=== PATIENT | female | born 1990 | race Caucasian/White ===

== ENCOUNTER → 2021-08-03 14:09 | Outpatient (CLI) | payer MEDICAID, SELFPAY ==
[2021-08-03 14:22] LABS: Alanine Aminotransferase 28 U/L (12-78); Albumin Level 4.4 g/dl (3.5-5.0); Albumin/Globulin Ratio 1.4 (1.1-1.8); Alkaline Phosphatase 93 U/L (38-126); Anion Gap 14.4 mEq/L (5-15); Aspartate Amino Transferase 24 U/L (14-36); Bilirubin,Total 0.3 mg/dl (0.2-1.3); Blood Urea Nitrogen 10 mg/dl (7-17); Calcium 9.7 mg/dl (8.4-10.2); Carbon Dioxide 27 mmol/L (22.0-30.0); Chloride 103 mmol/L (98-107); Chol/HDL Ratio 5.1 (1-3.5); Cholesterol 177 mg/dl (140-200); Estimated Glomerular Filt Rate 84 ml/min (>60); GFR (African American) 102 ML/MIN (>60); Globulin 3.2 g/dL (1.3-3.2); Glucose 77 mg/dl (74-100); HDL Cholesterol 35 mg/dl (40-60); Potassium 4.4 mmoL/L (3.5-5.1); Sodium 140 mmol/L (136-145); Total Protein,Serum 7.6 g/dl (6.3-8.2); Triglycerides 177 mg/dl (30-150); VLDL Cholesterol 35 mg/dL (0-40)
[2021-08-03 14:29] LABS: Basophils % 0.6 % (0.1-2.0); Eosinophils # 0.3 K/mm3 (0.0-0.4); Eosinophils % 3.3 % (0.1-12.0); Hematocrit 45.9 % (37.0-47.0); Hemoglobin 16.1 g/dL (12.2-16.2); Lymphocytes # 1.9 K/mm3 (0.7-4.5); Lymphocytes % 24.6 % (10-50); Mean Corpuscular HGB Conc 35.1 g/dL (31.8-35.4); Mean Corpuscular Hemoglobin 32.3 pg (27.0-31.2); Mean Corpuscular Volume 92.3 fl (81-99); Mean Platelet Volume 8.8 fl (7.4-10.4); Monocytes # 0.5 K/mm3 (0.1-1.0); Monocytes % 6.2 % (1.7-9.3); Neutrophils # 5.1 K/mm3 (1.8-7.8); Neutrophils % 65.3 % (37.0-80.0); Platelet Count 274 K/mm3 (142-424); Red Blood Count 4.97 M/mm3 (4.20-5.40); Red Cell Distribution Width 12.9 % (11.5-17.5); White Blood Count 7.8 K/mm3 (4.8-10.8)
[2021-08-03 14:32] LABS: Direct LDL Cholesterol 111.89 mg/dL (100-129)
[2021-08-03 14:38] LABS: 25-OH Vitamin D, Total 39.1 ng/mL (30-100)
[2021-08-03 14:40] LABS: T4 (Thyroxine) 12.5 ug/dl (5.53-11.0)
[2021-08-03 14:53] LABS: Thyroid Stimulating Hormone 1.18 uIU/mL (0.465-4.68)
== END ==
PROVIDERS: Visit Provider Nurse Practitioner Family
DX: F32.9 Major depressive disorder, single episode, unspecified (principal)
CPT/HCPCS: 80053; 80061; 82306; 84436; 84443; 85025

== ENCOUNTER → 2021-08-15 11:57 | Outpatient (CLI) | payer MEDICAID, SELFPAY | PROVIDERS: PCP Emergency Medicine; Visit Provider Nurse Practitioner | DX: Z20.822 Contact with and (suspected) exposure to COVID-19 (principal) | CPT/HCPCS: C9803; U0003; U0005 ==

== ENCOUNTER → 2021-09-22 20:11 | Outpatient (CLI) | payer MEDICAID, SELFPAY | PROVIDERS: Visit Provider Nurse Practitioner Family | DX: Z20.822 Contact with and (suspected) exposure to COVID-19 (principal) | CPT/HCPCS: C9803; U0003; U0005 ==

== ENCOUNTER 2022-06-25 12:35 | Emergency (ER) | payer MEDICAID, SELFPAY ==
[2022-06-25 12:58] VITALS: BP 107/69; PULSE 87; RESP 16; TEMP 36.7; O2SAT 100; BMI 22.6
--- NOTE | 2022-06-25 13:21 | HMH.EDUTC ---
[facility] [place] Clinical Impression: Viral syndrome, Exposure to COVID-19 virus Pharyngitis Qualifiers: Pharyngitis/tonsillitis etiology: unspecified etiology Qualified Code(s): J02.9 - Acute pharyngitis, unspecified Disposition: Home, Self-Care Condition on Discharge: Good Instructions: DI for COVID-19 (Suspected or Confirmed ), Preventing the Spread of Coronavirus Discharge Instructions Additional Instructions: Drink plenty of fluids. Take tylenol or ibuprofen for pain or fever. Take the medications as directed. Follow up with your regular doctor. GO TO THE ER FOR ANY WORSENING SYMPTOMS Quarantine until you know the results of your covid-19 test. Notify your school or workplace of your results and follow their instructions regarding return to work/school. Prescriptions: Brompheniramine/Pseudoephed/Dm [Bromfed Dm Cough Syrup] 5 ml PO Q6HP PRN #240 ml PRN Reason: Cough Transmission Status: Received by [id number] methylPREDNISolone [Medrol] 4 mg PO DIRECTED 6 Days #21 packet Transmission Status: Received by [id number] Azithromycin [Z-Vinny 250mg Tab*] 250 mg PO UD DOSE PK #6 tab Transmission Status: Received by [id number] Referrals: Kevin Bautista APRN [Primary Care Provider] - Forms: Work/School Release Time of Disposition: 13:44 Medical Decision Making - Medical Records Medical records reviewed: No: I reviewed the patient's medical records. - Michael Inquiry Pt receiving controlled substance: No Vital Signs: 06/25/22 12:58 06/25/22 13:46 Temperature 98.0 F 98.0 F Temperature Source Oral Pulse Rate 87 Pulse Rate [Left] 87 Respiratory Rate 16 16 Blood Pressure 107/69 L Blood Pressure [Right Arm] 107/69 L Blood Pressure Mean [Right Arm] 81 02 Sat by Pulse Oximetry 100 [facility] [place] HPI - General Stated complaint: Covid test, exposure Time Seen by Provider: 06/25/22 13:21 Mode of Arrival: Ambulatory Source of Information: Patient Limitations: No Limitations Description of Symptoms (Recalled from Triage Doc. by RN): patient comes in with complaints of headache, body ache. symptoms began 3 days ago. patient was exposed at work by someone with covid. HEENT Symptoms (Recalled from RN notes): Yes Resp Symptoms (Recalled from RN notes): No Skin Symptoms (Recalled from RN notes): No MS Symptoms (Recalled from RN notes): No Functional Status (Recalled from RN notes): n/a - History of Present Illness Provider Complaint: She states that for the past 3 days she has had a sore throat, chills, body aches and she has felt bad. She denies any known exposure to covid-19. - Related Data Previous Rx's Medication Instructions Recorded fluoxetine 40 mg capsule 40 mg PO DAILY #30 cap 08/03/21 Azithromycin [Z-Vinny 250mg Tab*] 250 mg PO UD DOSE PK #6 tab 06/25/22 Brompheniramine/Pseudoephed/Dm 5 ml PO Q6HP PRN #240 ml 06/25/22 [Bromfed Dm Cough Syrup] methylPREDNISolone [Medrol] 4 mg PO DIRECTED 6 Days #21 06/25/22 packet Allergies Allergy/AdvReac Type Severity Reaction Status Date / Time sulfamethoxazole Allergy Verified 06/25/22 13:00 [From Bactrim] trimethoprim [From Bactrim] Allergy Verified 06/25/22 13:00 - Worker's Comp Is this a Worker's Comp case?: No [facility] History - Hepatitis A Screen Attestation statement:: This patient has been screened for Hepatitis A risk factors. I have reviewed the patient's past medical history: Yes Medical History: Reports:: Anxiety, Depression Other Surgeries: Yes: Cholecystectomy - Social History Smoking Status: Current every day smoker Alcohol Intake: current Occupational Status: employed - Psychiatric History Pschychiatric History:: Reports:: Anxiety, Depression Family Hx:: Non-contributory ROS Obtained: Yes All systems reviewed & no additional complaints - Constitutional Constitutional: Reports as per HPI - Eyes Eyes: Denies eye discharge Physical Exam - Gene
[2022-06-25 13:46] VITALS: BP 107/69; PULSE 87; RESP 16; TEMP 36.7
== END 2022-06-25 13:52 | disposition home or self-care (01) ==
LOC: UTC 12:39
PROVIDERS: Emergency Provider Nurse Practitioner Family; PCP Nurse Practitioner Family
DX: U07.1 COVID-19 (principal); J02.9 Acute pharyngitis, unspecified; M79.10 Myalgia, unspecified site; F32.A Depression, unspecified; F41.9 Anxiety disorder, unspecified; F17.200 Nicotine dependence, unspecified, uncomplicated; Z79.52 Long term (current) use of systemic steroids; Z88.2 Allergy status to sulfonamides; Z88.8 Allergy status to other drugs, medicaments and biological substances
CPT/HCPCS: 99213; C9803; G0463; U0003; U0005

== ENCOUNTER 2022-09-17 06:31 | Inpatient (IN) | payer MEDICAID, SELFPAY ==
[2022-09-17] VITALS (9 sets, daily range): BP systolic 99–126; BP diastolic 62–78; PULSE 70–93; RESP 16–20; TEMP 36.7–38.4; O2SAT 96–100; BMI 20.5
--- NOTE | 2022-09-17 06:58 | HMH.EDUROGF ---
Discharge Plan Disposition Patient Disposition: Still a Patient Chief Complaint: Abdominal Pain Prescriptions Prescriptions: No Action fluoxetine [Prozac] 40 mg capsule 40 mg PO DAILY Qty: 30 2RF azithromycin 250 MG tablet 250 mg PO UD DOSE PK Qty: 6 0RF Rx Instructions: Take two (2) tablets today, then one (1) tablet days #2 thru #5 methylprednisolone 4 MG tablets,dose pack 4 mg PO DIRECTED 6 Days Qty: 21 0RF [id number]-yexidrqdf-DQ 118 ML syrup 5 ml PO Q6HP PRN (Reason: Cough) Qty: 240 0RF Clinical Impressions Clinical Impression: Pelvic pain Discharge ED Provider: Vimal Orta Female Urogenital HPI General Chief complaint: Abdominal Pain Stated complaint: possible UTI Time Seen by Provider: 09/17/22 06:58 Mode of Arrival: EMS Source of Information: Patient, EMS and Medical Record Limitations: No Limitations Description of Symptoms (Recalled from ER Triage Doc. by RN): pt c/o lower abd pain and fire crotch while trying to urinate.q History of Present Illness HPI Narrative: progressive lower abd pain with dysuria MD Complaint: dysuria and pelvic pain Onset (ago): day(s) Location: suprapubic Radiation: suprapubic Severity: moderate Urinary Symptoms: dysuria and difficulty urinating Sexual activity: yes : Unknown Associated symptoms: denies other symptoms Related Data Previous Rx's Medication Instructions Recorded fluoxetine 40 mg capsule (Prozac) 40 mg PO DAILY #30 caps 08/03/21 azithromycin 250 mg tablet 250 mg PO UD DOSE PK #6 tabs 06/25/22 rvvfkdvrcrjpoqu-nkrrtpmahlgawxt-SW 5 ml PO Q6HP PRN Cough #240 mL 06/25/22 2 mg-30 mg-10 mg/5 mL oral syrup methylprednisolone 4 mg tablets in 4 mg PO DIRECTED 6 days #21 06/25/22 a dose pack packets Allergies Allergy/AdvReac Type Severity Reaction Status Date / Time sulfamethoxazole Allergy Verified 06/25/22 13:00 [From Bactrim] trimethoprim [From Bactrim] Allergy Verified 06/25/22 13:00 PFSH PFSH Social History Smoking Status: Never smoker alcohol intake: current current occupational status: employed Travel in the last 8 weeks: None ROS Obtained: Yes All systems reviewed & no additional complaints except as documented Physical Exam General General appearance: alert Head Head exam: normocephalic Eye Eye exam: Present PERRL and EOMI ENT ENT exam: Present mucous membranes moist Neck Neck exam: Present trachea midline Respiratory Respiratory exam: Absent respiratory distress Cardiovascular Cardiovascular exam: Present regular rate Abdominal Exam Abdominal exam: Present soft and tenderness Abdominal tenderness: Present suprapubic and moderate Extremities Exam Extremities exam: Present full ROM Back Exam Back exam: Absent CVA tenderness (L) Neurological Exam Neurological exam: Present alert, oriented X3 and CN II-XII intact; Absent motor sensory deficit Psychiatric Psychiatric exam: Present normal affect Skin Skin exam: Absent rash Medical Decision Making Medical Records Medical records reviewed: Yes I reviewed the patient's medical records. Michael Inquiry Pt receiving controlled substance: No Vital Signs: 09/17/22 06:31 Temperature 100.3 F H Temperature Source Oral Pulse Rate [Right] 91 H Respiratory Rate 16 Blood Pressure [Right Arm] 126/66 Blood Pressure Mean [Right Arm] 86 02 Sat by Pulse Oximetry 98 Lab Data Lab results reviewed: Yes I reviewed the patient's lab results. Lab Results 09/17/22 06:48: Urine Color Yellow, Urine Appearance Cloudy, Urine pH 8.0, Ur Specific [place] 1.015, Urine Protein Negative, Urine Glucose (UA) Negative, Urine Ketones Negative, Urine Blood Negative, Urine Nitrate Negative, Urine Bilirubin Negative, Urine Urobilinogen 0.2, Ur Leukocyte Esterase 1+ A, Urine RBC None, Urine WBC 3-5, Ur Squamous Epith Cells 5-10, Amorphous Sediment 2+, Urine Bacteria 4+ 09/17/22 06:48: WBC 15.0 H, RBC 4.80, Hgb 14.4, Hct 43.9, MCV 91.6,
[2022-09-17 07:00] LABS: Microscopic, Urine URINE MICROSCOPIC (MICROSCOPIC)
[2022-09-17 07:06] LABS: Appearance,Urine CLOUDY (Clear); Basophils # 0.1 K/mm3 (0-0.2); Basophils % 0.5 % (0.1-2.0); Bilirubin,Urine Negative (Negative); Blood, Urine Negative (Negative); Chloride 103 mmol/L (98-107); Color,Urine YELLOW (Yellow); Eosinophils # 0.1 K/mm3 (0.0-0.4); Eosinophils % 0.5 % (0.1-12.0); Glucose,Urine (UA) Negative (Negative); Hematocrit 43.9 % (37.0-47.0); Hemoglobin 14.4 g/dL (12.2-16.2); Ketones,Urine Negative (Negative); Leukocyte Esterase,Urine 1+ (Negative); Lymphocytes # 1.1 K/mm3 (0.7-4.5); Lymphocytes % 7.2 % (10-50); Mean Corpuscular HGB Conc 32.8 g/dL (31.8-35.4); Mean Corpuscular Hemoglobin 30.1 pg (27.0-31.2); Mean Corpuscular Volume 91.6 fl (81-99); Mean Platelet Volume 8.4 fl (7.4-10.4); Monocytes # 0.6 K/mm3 (0.1-1.0); Neutrophils # 13.2 K/mm3 (1.8-7.8); Neutrophils % 87.8 % (37.0-80.0); Nitrate,Urine Negative (Negative); Platelet Count 322 K/mm3 (142-424); Potassium 3.4 mmoL/L (3.5-5.1); Protein,Urine Negative (Negative); Red Cell Distribution Width 12.9 % (11.5-17.5); Sodium 143 mmol/L (136-145); Specific Gravity, Urine 1.015 (1.005-1.030); Urobilinogen,Urine 0.2 EU/dl (0.2)
[2022-09-17 07:08] LABS: Urine Pregnancy, HCG Qual. Negative (Negative)
[2022-09-17 07:09] LABS: Alanine Aminotransferase 17 U/L (12-78); Albumin Level 4.1 g/dl (3.5-5.0); Albumin/Globulin Ratio 1.4 (1.1-1.8); Alkaline Phosphatase 108 U/L (38-126); Anion Gap 12.4 mEq/L (5-15); Aspartate Amino Transferase 19 U/L (14-36); Bilirubin,Total 0.3 mg/dl (0.2-1.3); Blood Urea Nitrogen 8 mg/dl (7-17); Calcium 8.5 mg/dl (8.4-10.2); Carbon Dioxide 31 mmol/L (22.0-30.0); Creatinine Clearance Estimated 100 mL/min (50-200); Estimated Glomerular Filt Rate 98 ml/min (>60); GFR (African American) 118 ML/MIN (>60); Globulin 2.9 g/dL (1.3-3.2); Glucose 89 mg/dl (74-100); MANUAL DIFFERENTIAL MANUAL DIFFERENTIAL (MANUAL DIFF)
--- NOTE | 2022-09-17 07:09 | CT_ITS ---
FINAL REPORT TECHNIQUE: After the administration of intravenous contrast, axial images were obtained through the abdomen and pelvis by computed tomography. The study was performed with techniques to keep radiation dose as low as reasonably achievable, (ALARA). Individual dose reduction techniques using automated exposure control or adjustment of mA and/or kV according to the patient's size were employed. CLINICAL HISTORY: abd pain, pain when urinating FINDINGS: Abdomen: The lung bases are clear. The liver is normal in size and attenuation. The patient is status post cholecystectomy. The spleen is unremarkable. The adrenals are normal. The pancreas is unremarkable. There are several small bilateral nonobstructing renal stones measuring less than 3 mm. The aorta is normal in caliber. There is no free fluid or adenopathy. Pelvis: The appendix is not well visualized. There are multiple fluid filled small bowel loops in the nonspecific pattern. There is moderate abnormal fluid in the pelvis with peritoneal thickening. There are cystic masses in both ovaries measuring up to 23 mm on the right and 18 mm on the left which causes edema/inflammation of the rectosigmoid colon with narrowing. The appearance is consistent with an inflammatory process, most worrisome for TOA with pelvic abscesses. Ruptured appendicitis is also a possibility with secondary pelvic abscesses. There is a small amount of free fluid adjacent to the cecum. The urinary bladder is unremarkable. There is no adenopathy. IMPRESSION: Findings most worrisome for TOA with pelvic abscesses but ruptured appendicitis is also possibility with secondary pelvic abscesses. Bilateral on obstructing renal stones. Reviewed, Interpreted and Dictated by Yoseph Diggs III, MD Transcribed by Precious Sykes Authenticated and [facility]
[2022-09-17 07:31] LABS: Lymphocytes % 6 % (10-50); Monocytes % 6 % (2-9); Neutrophils % 88 % (42-76); Total Cells Counted 100
[2022-09-17 07:32] LABS: Platelet Estimate Normal; RBC Morphology Normal
--- NOTE | 2022-09-17 07:36 | PC.NURSE ---
PT TO CT AT THIS TIME
[2022-09-17 07:42] LABS: Amorphous Sediment,Urine 2+ /lpf; Bacteria,Urine 4+ /lpf
--- NOTE | 2022-09-17 08:57 | PC.NURSE ---
Notified pt still having pain
--- NOTE | 2022-09-17 09:06 | US_ITS ---
FINAL REPORT CLINICAL HISTORY: TOA evaluation for clarification vs appy COMPARISON: CT from the same day FINDINGS: Transvaginal sonographic images of the pelvis were obtained. The uterus measures 7.7 x 5.6 x 4.1 cm. The endometrium measures 8 mm, which is within normal limits. No uterine mass is identified. The left ovary measures 4.3 x 3.1 x 3.1 cm. There is a 1.8 cm left ovarian cyst. The right ovary is enlarged measuring 6.6 x 5.1 x 4.9 cm. The right ovary appears heterogeneous. There is a complex fluid collection in the cul-de-sac measuring up to 8.5 cm. Blood flow seen to the ovaries. There is no evidence of free fluid. IMPRESSION: Complex fluid collection in the cul-de-sac. Differentials would include abscess and blood clot. Enlarged heterogeneous right ovary. Left ovarian cyst. Reviewed, Interpreted and Dictated by Yoseph Diggs III, MD Transcribed by Rey Barboza Authenticated and [facility]
--- NOTE | 2022-09-17 09:24 | PC.NURSE ---
PT TO RADIOLOGY FOR US
--- NOTE | 2022-09-17 09:54 | PC.NURSE ---
Pt returned from US. Mounika giving report to
--- NOTE | 2022-09-17 09:55 | PC.NURSE ---
Rounded on pt at this time. Advised he MD was reviewing reports and labs to develop further POC. No other needs at this time
--- NOTE | 2022-09-17 10:03 | PC.NURSE ---
MESSAGE LEFT WITH REAL IN OR. DR. LAMBERT NOTIFIED
--- NOTE | 2022-09-17 10:08 | PC.NURSE ---
Spoke with MD regarding antibiotic administration and potential for patient going to OR. MD agreeable with POC at this time
--- NOTE | 2022-09-17 10:08 | PC.NURSE ---
DR. GALARZA SPEAKING WITH DR. GREER
[2022-09-17 10:11] LABS: Coronavirus 19, PCR Not Detected (NotDetected); Influenza A, PCR Not Detected (NotDetected); Influenza B, PCR Not Detected (NotDetected)
--- NOTE | 2022-09-17 10:14 | PC.NURSE ---
CARE MANAGEMENT NOTIFIED OF ADMISSION
--- NOTE | 2022-09-17 10:56 | PC.NURSE ---
REPORT GIVEN TO Isabella JADE RN
--- NOTE | 2022-09-17 12:22 | EXP.HP ---
History of Present Illness *Admission Date: 09/17/22 *Reason for visit:: Acute pelvic pain *History of present illness: Ms Lisseth Paulino is a 31 yo P2022 who presented to [facility] ED with complaint of bilateral pelvic pain, LLQ > RLQ. Pain woke her from sleep last night. She reports associated sweating and nausea. She is unsure of fevers. She states she does not check her temperature. She admits the pelvic pain has been present for about 1 month. Pain is intermittent. She has not tried any medication for it. Pain is worse on the left. She reports chronic LLQ pain that is different compared to current pain. She states her first child was a forcep delivery and she has had intermittent LLQ pain since that delivery. FDLMP 09/04/22. Periods are heavy but regular. She does not use contraception. She thinks she has been sexually active with 5 different men in the past 6 months. She has history of Chlamydia in 2012 and 2020. History of left salpingectomy secondary to ectopic in 2011. History of forcep assisted vaginal delivery and spontaneous vaginal delivery. History of first trimester SAB with subsequent D&C. [facility] Medical History History of ectopic Kidney stones Left ovarian cyst Right tubo-ovarian abscess Surgical History H/O unilateral salpingectomy History of dilation and curettage History of laparoscopic cholecystectomy Social History Smoking Status: Current every day smoker alcohol intake: current current occupational status: employed Travel in the last 8 weeks: None Review of Systems Review of Systems Review of systems:: pertinent systems reviewed and negative unless documented below *Gastrointestinal Gastrointestinal: Reports abdominal pain and Reports nausea *Genitourinary Genitourinary: Reports menorrhagia Meds Home Medications and Allergies Home Medications Medication Instructions Recorded Confirmed Type No Known Home Medications 09/17/22 09/17/22 History New Prescriptions to Start Prescriptions: Allergies Allergy/AdvReac Type Severity Reaction Status Date / Time sulfamethoxazole Allergy Verified 06/25/22 13:00 [From Bactrim] trimethoprim [From Bactrim] Allergy Verified 06/25/22 13:00 Exam Data for Last 24 hours Vital signs and Labs for Last 24 Hours: Temp Pulse Resp BP Pulse Ox 98.5 F 79 18 100/71 L 99 09/17/22 11:30 09/17/22 11:30 09/17/22 11:30 09/17/22 11:30 09/17/22 11:30 Laboratory Results - last 24 hr 09/17/22 06:48: Urine Color Yellow, Urine Appearance Cloudy, Urine pH 8.0, Ur Specific [place] 1.015, Urine Protein Negative, Urine Glucose (UA) Negative, Urine Ketones Negative, Urine Blood Negative, Urine Nitrate Negative, Urine Bilirubin Negative, Urine Urobilinogen 0.2, Ur Leukocyte Esterase 1+ A, Urine RBC None, Urine WBC 3-5, Ur Squamous Epith Cells 5-10, Amorphous Sediment 2+, Urine Bacteria 4+ 09/17/22 06:48: WBC 15.0 H, RBC 4.80, Hgb 14.4, Hct 43.9, MCV 91.6, MCH 30.1, MCHC 32.8, RDW 12.9, Plt Count 322, MPV 8.4, Neut % (Auto) 87.8 H, Lymph % (Auto) 7.2 L, [place] % (Auto) 4.0, Eos % (Auto) 0.5, Baso % (Auto) 0.5, Neut # (Auto) 13.2 H, Lymph # (Auto) 1.1, [place] # (Auto) 0.6, Eos # (Auto) 0.1, Baso # (Auto) 0.1, Total Counted 100, Neutrophils % (Manual) 88 H, Lymphocytes % (Manual) 6 L, Monocytes % (Manual) 6, Platelet Estimate Normal, RBC Morphology Normal 09/17/22 06:48: Urine HCG, Qual Negative 09/17/22 06:48: Sodium 143, Potassium 3.4 L, Chloride 103, Carbon Dioxide 31 H, Anion Gap 12.4, BUN 8, Creatinine 0.70, Estimated Creat Clear 100, Estimated GFR 98, Est GFR ( Amer) 118, Glucose 89, Calcium 8.5, Total Bilirubin 0.3, AST 19, ALT 17, Alkaline Phosphatase 108, Total Protein 7.0, Albumin 4.1, Globulin 2.9, Albumin/Globulin Ratio 1.4 09/17/22 10:05: SARS-CoV-2 (PCR) Not detected,
--- NOTE | 2022-09-17 16:42 | PC.NURSE ---
1630 RN reassessment completed at this time. Pt remains A&O X4, has slept for a couple hours this shift and was medicated per EMAR x1 with toradol for c/o LLQ pain. Pt denies any pain/discomfort at this time. Lungs sounds CTA, no c/o SOA. Abd soft and mildly tender to left side with BS active in all quads. Tolerating a regular diet well with no N/V. VSS. 18 G to RAC infusing without difficulty. Bed locked and in lowest position with side rails up x2 and call light within reach. Will continue to monitor.
--- NOTE | 2022-09-17 21:30 | PC.NURSE ---
temperature noted to be elevated at this time, pt received oxycodone approx 30 mins ago as well as antibiotics, pt states I think my fever is breaking right now im sweaty pt also states she has been under covers, pt is awake alert ambulating in room and states she feels better at this time, no complaints of pain. vss other than elevated temperature, will recheck temperature in 30 mins
[2022-09-18] VITALS (7 sets, daily range): BP systolic 92–113; BP diastolic 60–81; PULSE 80–90; RESP 17–20; TEMP 36.8–37.7; O2SAT 96–99
--- NOTE | 2022-09-18 04:17 | PC.NURSE ---
REASSESSMENT COMPLETED AT THIS TIME. PT HAS RESTED OFF AND ON THROUGHOUT SHIFT, PT HAS BEEN MEDICATED FOR PAIN X 1 AT BEGINNING OF SHIFT AND HAS SINCE DENIED ANY PAIN OR DISCOMFORT, VOIDING WITHOUT DIFFICULTY, VSS, PT WAS FEBRILE X 1 WHICH WAS TREATED WITH REMOVING COVERS AND ANTIBIOTICS AND TEMPERATURE RETURNED TO BASELINE. PT STATES SHE FEELS BETTER AT THIS TIME. PT HAS REMAINED NPO SINCE MIDNIGHT. CALL LIGHT WITHIN REACH WILL CONTINUE TO MONITOR
[2022-09-18 07:10] LABS: Basophils # 0.1 K/mm3 (0-0.2); Basophils % 0.4 % (0.1-2.0); Eosinophils # 0.1 K/mm3 (0.0-0.4); Eosinophils % 0.4 % (0.1-12.0); Hematocrit 34.7 % (37.0-47.0); Lymphocytes # 1.7 K/mm3 (0.7-4.5); Lymphocytes % 13.5 % (10-50); Mean Corpuscular HGB Conc 33.8 g/dL (31.8-35.4); Mean Corpuscular Hemoglobin 30.3 pg (27.0-31.2); Mean Corpuscular Volume 89.7 fl (81-99); Mean Platelet Volume 7.9 fl (7.4-10.4); Monocytes # 0.6 K/mm3 (0.1-1.0); Monocytes % 4.8 % (1.7-9.3); Neutrophils # 10.4 K/mm3 (1.8-7.8); Neutrophils % 80.9 % (37.0-80.0); Platelet Count 258 K/mm3 (142-424); Red Blood Count 3.87 M/mm3 (4.20-5.40); White Blood Count 12.8 K/mm3 (4.8-10.8)
[2022-09-18 07:11] LABS: Hemoglobin 11.7 g/dL (12.2-16.2)
[2022-09-18 07:36] LABS: Alanine Aminotransferase 24 U/L (12-78); Albumin Level 2.9 g/dl (3.5-5.0); Albumin/Globulin Ratio 1.1 (1.1-1.8); Alkaline Phosphatase 93 U/L (38-126); Anion Gap 11.4 mEq/L (5-15); Aspartate Amino Transferase 26 U/L (14-36); Bilirubin,Total 0.3 mg/dl (0.2-1.3); Blood Urea Nitrogen 4 mg/dl (7-17); Calcium 7.7 mg/dl (8.4-10.2); Carbon Dioxide 29 mmol/L (22.0-30.0); Chloride 102 mmol/L (98-107); Creatinine Clearance Estimated 140 mL/min (50-200); Estimated Glomerular Filt Rate 144 ml/min (>60); GFR (African American) 174 ML/MIN (>60); Globulin 2.6 g/dL (1.3-3.2); Glucose 84 mg/dl (74-100); Potassium 3.4 mmoL/L (3.5-5.1); Sodium 139 mmol/L (136-145); Total Protein,Serum 5.5 g/dl (6.3-8.2)
--- NOTE | 2022-09-18 08:00 | EXP.ACUTE.PN ---
Subjective *Date: 09/18/22 *Time: 08:00 Interval history: Patient resting comfortably in bed. She states she has mostly been sleeping. She had one dose of Oxycodone last night and it made her vomit. Toradol has been relieving the pain. She states the pain is now primarily RLQ. She is passing flatus but stated it caused discomfort. Last BM was 09/15/22. She states she normally has a BM 6 x daily because of her gallbladder. Voiding without difficulty. Tolerating regular diet. She states she is starving this morning and would like to eat breakfast. She admits overall she feels a little better. Denies fever/chills, chest pain and shortness of breath. Medical Exam Vital signs and Labs for Last 24 Hours: Vital Signs Temp Pulse Pulse Resp BP BP Pulse Ox 09/18/22 05:44 99.4 F 09/18/22 04:15 99.8 F H 90 17 103/64 L 96 09/18/22 00:18 98.9 F 80 18 92/60 L 98 09/17/22 22:10 98.3 F 09/17/22 21:30 101.2 F H 93 H 18 104/77 L 96 09/17/22 16:30 98.6 F 86 16 99/62 L 98 09/17/22 11:30 98.5 F 79 18 100/71 L 99 09/17/22 11:17 98.5 F 70 16 114/64 09/17/22 09:56 98.1 F 78 16 112/78 99 Intake and Output 09/17/22 09/18/22 09/18/22 23:59 07:59 15:59 Output Total 600 / 850 300 / 300 Balance -600 / -850 -300 / -300 Output: Output, Urine Amount 600 / 850 300 / 300 Other: Number of Unmeasured Voids 1 Laboratory Results - last 24 hr 09/17/22 10:05: SARS-CoV-2 (PCR) Not detected, Influenza A Untype (PCR) Not detected, Influenza Type B (PCR) Not detected 09/18/22 06:45: WBC 12.8 H, RBC 3.87 L, Hgb 11.7 L D, Hct 34.7 L, MCV 89.7, MCH 30.3, MCHC 33.8, RDW 13.0, Plt Count 258, MPV 7.9, Neut % (Auto) 80.9 H, Lymph % (Auto) 13.5, [place] % (Auto) 4.8, Eos % (Auto) 0.4, Baso % (Auto) 0.4, Neut # (Auto) 10.4 H, Lymph # (Auto) 1.7, [place] # (Auto) 0.6, Eos # (Auto) 0.1, Baso # (Auto) 0.1 09/18/22 06:45: Sodium 139, Potassium 3.4 L, Chloride 102, Carbon Dioxide 29, Anion Gap 11.4, BUN 4 L D, Creatinine 0.50 L D, Estimated Creat Clear 140, Estimated GFR 144, Est GFR ( Amer) 174 D, Glucose 84, Calcium 7.7 L, Total Bilirubin 0.3, AST 26 D, ALT 24 D, Alkaline Phosphatase 93, Total Protein 5.5 L, Albumin 2.9 L D, Globulin 2.6, Albumin/Globulin Ratio 1.1 I & O for Labs for Last 24 Hours: Intake & Output 09/15/22 09/16/22 09/17/22 09/18/22 23:59 23:59 23:59 23:59 Output Total 850 / 850 300 / 300 Balance -850 / -850 -300 / -300 Weight 120 lb Microbiology Reports for the Last 24 Hours: Microbiology 09/17/22 06:48 Urine,Clean Catch Urine Culture - Preliminary NO GROWTH AFTER 24 HOURS 09/17/22 12:20 Genital Gram Stain - Final Head: Present atraumatic and normocephalic ENT: Present mucous membranes moist Neck: Present full ROM Respiratory: Present CTA bilaterally and normal respiratory effort Cardiac: Present Reg Rate and Rhythm GI: Present soft, distention (mild distension), tenderness (RLQ tenderness to palpation) and normal bowel sounds; Absent guarding or rebound Rectal (female): Present deferred (female): Present deferred Extremities: Present normal inspection and full ROM Assessment and Plan *Assessment and plan (1) Pelvic pain: Status: Acute Category: Medical Code(s): R10.2 - Pelvic and perineal pain (2) Right tubo-ovarian abscess: Status: Acute Category: Medical Code(s): N70.93 - Salpingitis and oophoritis, unspecified (3) Left ovarian cyst: Status: Acute Category: Medical Code(s): N83.202 - Unspecified ovarian cyst, left side (4) Hypokalemia: Problem details: potassium 3.4 Status: Acute Category: Medical Code(s): E87.6 - Hypokalemia (5) Leukocytosis: Problem details: Improving 12.8 today (15.0 on 09/17) Status: Acute Qualifiers: Leukocytosis type: unspecified Qualified Code(s): D72.829 - El
--- NOTE | 2022-09-18 08:32 | US_ITS ---
FINAL REPORT CLINICAL HISTORY: Pelvic pain. follow-up COMPARISON: 09/17/2022 FINDINGS: Transvaginal sonographic images of the pelvis were obtained. The uterus measures 9.0 x 5.0 x 4.7 cm. The endometrium measures 8 mm, which is within normal limits. No uterine mass is identified. The left ovary measures 3.3 x 3.1 x 2.8 cm. There is a 1.8 cm left ovarian cyst. The right ovary is enlarged measuring 7.9 x 4.4 x 4.1 cm. The right ovary appears heterogeneous. There is a complex fluid collection in the cul-de-sac measuring up to 8.5 cm. Blood flow seen to the ovaries. There is no evidence of free fluid. IMPRESSION: Complex fluid collection in the cul-de-sac. Differentials would include abscess and blood clot. Enlarged heterogeneous right ovary. Left ovarian cyst. No significant change from the prior exam. Reviewed, Interpreted and Dictated by Yoseph Diggs III, MD Transcribed by Rey Barboza Authenticated and [facility]
--- NOTE | 2022-09-18 10:42 | PC.NURSE ---
0916 TO U/S VIA WHEELCHAIR, REPORT GIVEN TO TYRONE JONES.
[2022-09-18 16:38] LABS: Basophils # 0.1 K/mm3 (0-0.2); Basophils % 0.4 % (0.1-2.0); Eosinophils # 0.1 K/mm3 (0.0-0.4); Eosinophils % 0.3 % (0.1-12.0); Hemoglobin 11.8 g/dL (12.2-16.2); Lymphocytes # 1.3 K/mm3 (0.7-4.5); Lymphocytes % 8.6 % (10-50); Mean Corpuscular HGB Conc 33.9 g/dL (31.8-35.4); Mean Corpuscular Hemoglobin 30.2 pg (27.0-31.2); Mean Corpuscular Volume 89.1 fl (81-99); Monocytes # 0.7 K/mm3 (0.1-1.0); Monocytes % 4.4 % (1.7-9.3); Neutrophils % 86.3 % (37.0-80.0); Platelet Count 264 K/mm3 (142-424); Red Blood Count 3.92 M/mm3 (4.20-5.40); Red Cell Distribution Width 12.8 % (11.5-17.5)
[2022-09-18 16:39] LABS: MANUAL DIFFERENTIAL MANUAL DIFFERENTIAL (MANUAL DIFF)
--- NOTE | 2022-09-18 16:47 | PC.NURSE ---
NO ACUTE CHANGES TO NOTE. VITALS STABLE. HAS ONLY TAKEN TORADOL 2 TIMES ON THIS SHIFT. PAIN REMAINS IN RLQ. PATIENT HAS SLEPT MOST OF THE DAY.
[2022-09-18 16:59] LABS: Lymphocytes % 10 % (10-50); Monocytes % 10 % (2-9); Neutrophils % 80 % (42-76); Platelet Estimate Normal; RBC Morphology Normal; Total Cells Counted 100
--- NOTE | 2022-09-18 19:10 | PC.NURSE ---
REPORT GIVEN TO EDMUND BERNAL RN
[2022-09-18 22:07] LABS: Neisseria gonorrhoeae, NAA Positive (Negative)
[2022-09-19] VITALS (21 sets, daily range): BP systolic 88–137; BP diastolic 51–101; PULSE 47–93; RESP 16–22; TEMP 6.1–43; O2SAT 91–100
--- NOTE | 2022-09-19 05:09 | PC.NURSE ---
Pt has rested well throughout shift, medicated for pain x 1 see emar, pt denies n/v zofran only given for nausea r/t opiate adminsiration per pt reports, pt denies any pain at this time, lungs remain clear, bs x 4, pt does have nonproductive cough this am, good urine output, 20g iv infusing well, vss. pt has remained afrebrile throughout shfit, no needs at this time, call light within reach will continue to monitor
[2022-09-19 07:33] LABS: Basophils # 0.1 K/mm3 (0-0.2); Basophils % 0.5 % (0.1-2.0); Eosinophils # 0.1 K/mm3 (0.0-0.4); Hematocrit 32.8 % (37.0-47.0); Lymphocytes # 2.2 K/mm3 (0.7-4.5); Lymphocytes % 19.4 % (10-50); Mean Corpuscular HGB Conc 32.1 g/dL (31.8-35.4); Mean Corpuscular Volume 93.3 fl (81-99); Mean Platelet Volume 8.4 fl (7.4-10.4); Monocytes # 0.6 K/mm3 (0.1-1.0); Monocytes % 5.3 % (1.7-9.3); Neutrophils # 8.3 K/mm3 (1.8-7.8); Neutrophils % 73.8 % (37.0-80.0); Platelet Count 242 K/mm3 (142-424); Red Blood Count 3.52 M/mm3 (4.20-5.40); Red Cell Distribution Width 12.8 % (11.5-17.5); White Blood Count 11.2 K/mm3 (4.8-10.8)
[2022-09-19 07:40] LABS: Hemoglobin 10.6 g/dL (12.2-16.2)
[2022-09-19 07:58] LABS: Alanine Aminotransferase 18 U/L (12-78); Albumin Level 2.7 g/dl (3.5-5.0); Albumin/Globulin Ratio 1.1 (1.1-1.8); Alkaline Phosphatase 96 U/L (38-126); Anion Gap 10.5 mEq/L (5-15); Aspartate Amino Transferase 21 U/L (14-36); Blood Urea Nitrogen 4 mg/dl (7-17); Calcium 8.1 mg/dl (8.4-10.2); Carbon Dioxide 29 mmol/L (22.0-30.0); Chloride 104 mmol/L (98-107); Creatinine Clearance Estimated 140 mL/min (50-200); Estimated Glomerular Filt Rate 144 ml/min (>60); GFR (African American) 174 ML/MIN (>60); Globulin 2.5 g/dL (1.3-3.2); Glucose 67 mg/dl (74-100); Potassium 3.5 mmoL/L (3.5-5.1); Sodium 140 mmol/L (136-145); Total Protein,Serum 5.2 g/dl (6.3-8.2)
[2022-09-19 08:03] LABS: Bilirubin,Total < 0.1 mg/dl (0.2-1.3)
--- NOTE | 2022-09-19 11:24 | PC.NURSE ---
DR LAMBERT HERE
--- NOTE | 2022-09-19 11:53 | EXP.ACUTE.PN ---
Subjective *Date: 09/19/22 *Time: 11:53 Interval history: Hospital day # 2 Patient resting comfortably in bed. She has been sleeping a lot. She had some pain after midnight last night and took one oxycodone. No further pain medicine since. States she feels a little better. No pain with rest. Tolerating regular diet. No nausea or vomiting. Denies fever/chills, chest pain and shortness of breath. Voiding without difficulty. Passing flatus. Medical Exam Vital signs and Labs for Last 24 Hours: Vital Signs Temp Pulse Resp BP Pulse Ox 09/19/22 08:10 98.3 F 72 18 88/53 L 95 09/19/22 08:10 95 09/19/22 05:07 99.0 F 79 17 88/51 L 09/19/22 01:00 98.6 F 86 17 104/64 L 09/18/22 20:30 99.3 F 86 18 112/81 09/18/22 16:44 99.7 F H 83 20 111/69 99 09/18/22 12:19 98.7 F 80 18 113/75 99 Intake and Output 09/18/22 09/19/22 09/19/22 23:59 07:59 15:59 Intake Total 1500 / 1500 Output Total 1 / 401 0 / 0 Balance 1499 / 1099 0 / 0 Intake: Intake, Total IV Amount 1500 / 1500 Ringers Solution,Lactated 1,000 1500 / 1500 ml @ 125 mls/hr IV .Q8H [facility] Rx #:[id number] Output: Output, Urine Amount 0 / 400 0 / 0 Output, Stool Amount 1 / 1 Other: Number of Unmeasured Voids 1 1 Laboratory Results - last 24 hr 09/17/22 06:48: Urine Color Yellow, Urine Appearance Cloudy, Urine pH 8.0, Ur Specific [place] 1.015, Urine Protein Negative, Urine Glucose (UA) Negative, Urine Ketones Negative, Urine Blood Negative, Urine Nitrate Negative, Urine Bilirubin Negative, Urine Urobilinogen 0.2, Ur Leukocyte Esterase 1+ A, Urine RBC None, Urine WBC 3-5, Ur Squamous Epith Cells 5-10, Amorphous Sediment 2+, Urine Bacteria 4+ 09/17/22 13:00: C. trachomatis ([place]) Negative, N. gonorrhoeae ([place]) Positive A 09/18/22 16:16: WBC 15.0 H, RBC 3.92 L, Hgb 11.8 L, Hct 35.0 L, MCV 89.1, MCH 30.2, MCHC 33.9, RDW 12.8, Plt Count 264, MPV 8.0, Neut % (Auto) 86.3 H, Lymph % (Auto) 8.6 L, [place] % (Auto) 4.4, Eos % (Auto) 0.3, Baso % (Auto) 0.4, Neut # (Auto) 13.0 H, Lymph # (Auto) 1.3, [place] # (Auto) 0.7, Eos # (Auto) 0.1, Baso # (Auto) 0.1, Total Counted 100, Neutrophils % (Manual) 80 H, Lymphocytes % (Manual) 10, Monocytes % (Manual) 10 H, Platelet Estimate Normal, RBC Morphology Normal 09/19/22 06:26: WBC 11.2 H D, RBC 3.52 L, Hgb 10.6 L D, Hct 32.8 L, MCV 93.3, MCH 30.0, MCHC 32.1, RDW 12.8, Plt Count 242, MPV 8.4, Neut % (Auto) 73.8, Lymph % (Auto) 19.4, [place] % (Auto) 5.3, Eos % (Auto) 1.0, Baso % (Auto) 0.5, Neut # (Auto) 8.3 H, Lymph # (Auto) 2.2, [place] # (Auto) 0.6, Eos # (Auto) 0.1, Baso # (Auto) 0.1 09/19/22 06:26: Sodium 140, Potassium 3.5, Chloride 104, Carbon Dioxide 29, Anion Gap 10.5, BUN 4 L, Creatinine 0.50 L, Estimated Creat Clear 140, Estimated GFR 144, Est GFR ( Amer) 174, Glucose 67 L D, Calcium 8.1 L, Total Bilirubin < 0.1 L, AST 21, ALT 18, Alkaline Phosphatase 96, Total Protein 5.2 L, Albumin 2.7 L, Globulin 2.5, Albumin/Globulin Ratio 1.1 I & O for Labs for Last 24 Hours: Intake & Output 09/16/22 09/17/22 09/18/22 09/19/22 23:59 23:59 23:59 23:59 Intake Total 1500 / 1500 Output Total 850 / 850 401 / 401 0 / 0 Balance -850 / -850 1099 / 1099 0 / 0 Weight 120 lb Microbiology Reports for the Last 24 Hours: Microbiology 09/17/22 12:20 Genital Gram Stain - Final 09/17/22 12:20 Genital Genital Culture - Preliminary 09/17/22 06:48 Urine,Clean Catch Urine Culture - Preliminary Gram Positive Cocci Head: Present atraumatic and normocephalic ENT: Present normal exam and mucous membranes moist Neck: Present full ROM Respiratory: Present CTA bilaterally and normal respiratory effort Cardiac: Present Reg Rate and Rhythm GI: Present soft, tenderness (RLQ and suprapubic tenderness to palpation) and normal bowel sounds; Absent distention, guarding or rebound Rectal (female): Present deferred (female): Present deferred Extremities: Present laya
[2022-09-19 15:39] LABS: POC Glucose,Bedside 74 (70-110)
--- NOTE | 2022-09-19 15:54 | EXP.ANES.CKL ---
[facility] Medical History (Updated 09/19/22 @ 12:00 by Imelda Back DO) Anemia Gonorrhea History of ectopic Hypokalemia Kidney stones Left ovarian cyst Leukocytosis Right tubo-ovarian abscess Surgical History H/O unilateral salpingectomy History of dilation and curettage History of laparoscopic cholecystectomy Social History Smoking Status: Current every day smoker alcohol intake: current substance use type: denies use current occupational status: employed Travel in the last 8 weeks: None [facility] Anesthesia Checklist Patient Identification Patient Identification: Arm Band Structural Data Admitted From: Inpatient Planned Operative Procedure/s: Diagnostic Laparoscopy Consent for Planned Operative Procedure(s) Verified: Yes Verified Documents: Surgical Consent and History and Physical NPO Status Verified Time NPO: 00:00 Additional verifications Anesthesia Reactions: No Airway Assessment C-Spine Mobility Assessed: Yes TMJ Mobility Assessed: Yes Neurological Assessment Level of Consciousness: Awake and Alert Anesthesia Plan Anesthesia Risk discussed: Yes Anesthesia Plan: Verified ASA Class: I Anesthesia Type: General
--- NOTE | 2022-09-19 16:52 | P.PNANES_ITS ---
[facility] Anesthesia Record Part I Anesthesia Record I Intake, IV Amount: 1,000 Estimated blood loss (mL): 5 Urine output (mL): 0 Blood Products used (#): none Blood Pressure: 134/101 SaO2: 98 Pulse Rate: 93 Respiratory Rate: 16 Temperature: 97.6 F Patient is:: Drowsy and Stable Stable to PACU at:: 16:50
--- NOTE | 2022-09-19 17:06 | EXP.OP.NOTE ---
Date of procedure: 09/19/22 Pre-op Diagnosis:: 1. Pelvic pain 2. Tubo-ovarian abscess 3. Left ovarian cyst Post-op Diagnosis:: 1. Pelvic pain 2. Tubo-ovarian abscess 3. Left ovarian cyst 4. Pelvic abscess 5. Stage 1 endometriosis of pelvic peritoneum Procedure performed:: 1. Diagnostic laparoscopy 2. Irrigation of pelvis Surgeon:: Imelda Back DO Die Technician(s):: N/a TAKE UP OPERATOR:: Merrill Henley Anesthesia: GETA Estimated blood loss (mL): 5 Clinical Note:: Ms Lisseth Paulino is a 31 yo P2022 who presented to [facility] ED with complaint of bilateral pelvic pain, LLQ > RLQ. Pain woke her from sleep last night. She reports associated sweating and nausea. She is unsure of fevers. She states she does not check her temperature. She admits the pelvic pain has been present for about 1 month. Pain is intermittent. She has history of chlamydia infection in 2012 and 2020. She reports history of left salpingectomy secondary to ectopic . She has been sexually active with 5 different men in the past 6 months. She tested positive for Gonorrhea on 09/17. She has been receiving Rocephin, Metronidazole and Doxycyline since admission. Vital signs stable. Leukocytosis improving with antibiotics but hemoglobin was decreasing. Pain continued to be intermittent. Decision was made to go to OR for diagnostic laparoscopy. Operative findings:: Upon bimanual exam, uterus retroverted, normal size and shape. No adnexal masses palpated. Upon laparoscopic exam, grossly normal appearing liver, stomach, bowel and omentum. Surgically absent right fallopian tube. Right ovary could not be found. Left fallopian tube adhered to left ovary. Left ovary was enlarged with multiple cysts and positioned in the midline of the pelvis. Moderate amount of yellow purulent material in posterior cul-de-sac. After pelvic was irrigated, posterior cul-de-sac appeared raw and similar to a shallow ulcer. Posterior side of uterus also appeared raw and rough similar to shallow ulceration. No active bleeding. No hematoma. Operative note:: Risks, benefits and alternatives were discussed with the patient. Risks include but are not limited to bleeding, infection, damage to adjacent structures and VTE. Patient voiced understanding and agreed to proceed with surgery. She was wheeled back to the operating room and placed under general anesthesia without difficulty. She was placed in the dorsal lithotomy position and prepped and draped in normal sterile fashion. A straight catheter was used to drain the bladder. A bimanual exam was performed. A weighted Auvard was placed in the vaginal vault. A single tooth tenaculum was placed on the anterior lip of the cervix. [place] manipulator was inserted into the cervical canal and attached to the tenaculum. Weighted Auvard was removed from the vagina. Attention was then drawn to the abdomen. A 2cm infraumbilical incision was made. Veress needle was tested and inserted intraabdominally without difficulty. Opening pressure of 5 mm Hg. Abdomen was then insulflated to 15 mm Hg. Trocar was inserted through infraumbilical incision and laparoscope was inserted. Abdomen was viewed in its entirety. See findings above. Pictures were taken. Right lower quadrant was transilluminated. 5 mm incision was made and 5 mm disposable blunt trocar was inserted into the abdomen under direct laparoscopic visualization. Trocar was removed and sleeve was left in place. Right lower quadrant was transilluminated. A 2 cm incision was made and an 11 mm disposable trocar was inserted into the abdomen under direct laparoscopic visualization. Obturator was removed and sleeve was left in place. Evaluation of pelvis was performed. See findings above. Pelvis was irrigated with clear return of fluids. Left lower quadrant trocar was removed under direct laparoscopic visualization. Right lower quadrant trocar was removed under direct laparoscopic visualization. Pneumoperitoneum was released into the atmosphere. Infraumbilical troc
--- NOTE | 2022-09-19 17:30 | PC.NURSE ---
pt up from surgery. lungs cta and bowel sounds active x4. minimal pain noted. iv infusing. 3 lap sites noted. c/d/i. poc explained.
[2022-09-20 00:30] VITALS: BP 90/61; PULSE 49; RESP 18; TEMP 36.9; O2SAT 96
[2022-09-20 04:36] VITALS: BP 96/51; PULSE 56; RESP 17; TEMP 36.7
--- NOTE | 2022-09-20 04:37 | PC.NURSE ---
reassessment pt has been awake throughout shift, pt remains alert and oriented x 4, remained afrebrile, lungs clear to auscultate, pt has been passing flatus no bm this shift, pt did refuse miralax dose at 2100. 3 lap site dressing remain intact with small amount of old serosanginous drainage noted to dressing at umbilicus no change in amount of drainage from 2029 assessment, vss, pt only medicated x1 for pain, antibiotic therapy continues, ambulating in room without difficulty and tolerating diet, no needs at this time, will continue to monitor
[2022-09-20 07:27] LABS: Basophils % 0.2 % (0.1-2.0); Eosinophils # 0.1 K/mm3 (0.0-0.4); Eosinophils % 0.9 % (0.1-12.0); Hematocrit 35.6 % (37.0-47.0); Hemoglobin 11.6 g/dL (12.2-16.2); Lymphocytes # 1.6 K/mm3 (0.7-4.5); Lymphocytes % 11.3 % (10-50); Mean Corpuscular HGB Conc 32.6 g/dL (31.8-35.4); Mean Corpuscular Hemoglobin 29.8 pg (27.0-31.2); Mean Corpuscular Volume 91.3 fl (81-99); Mean Platelet Volume 8.6 fl (7.4-10.4); Monocytes # 0.6 K/mm3 (0.1-1.0); Monocytes % 4.1 % (1.7-9.3); Neutrophils # 11.9 K/mm3 (1.8-7.8); Neutrophils % 83.4 % (37.0-80.0); Platelet Count 318 K/mm3 (142-424); Red Blood Count 3.89 M/mm3 (4.20-5.40); Red Cell Distribution Width 12.8 % (11.5-17.5); White Blood Count 14.2 K/mm3 (4.8-10.8)
[2022-09-20 07:43] VITALS: RESP 18
[2022-09-20 08:00] VITALS: BP 88/62; PULSE 66; RESP 17; TEMP 36.4; O2SAT 98
--- NOTE | 2022-09-20 08:40 | PC.NURSE ---
Dr Back rounded on pt, gave orders to give depo injection today and follow up in 2 weeks in her office, orders repeated and verified back.
--- NOTE | 2022-09-20 08:41 | EXP.DC.SUM ---
General Admission date:: 09/17/22 Discharge date: 09/20/22 HPI HPI HPI: Hospital day # 3, POD # 1 s/p diagnostic laparoscopy Patient resting comfortably in bed. Pain well controlled. She admits to feeling better. Tolerating regular diet. Voiding without difficulty. Passing flatus. Denies fever/chills, chest pain and shortness of breath. No nausea or vomiting. Hospital Course Hospital Course Hospital Course: Ms Lisseth Paulino is a 31 yo P2022 who presented to [facility] ED with complaint of bilateral pelvic pain, LLQ > RLQ. Pain woke her from sleep on 09/17/22. She reported associated sweating and nausea. She is unsure of fevers. She states she does not check her temperature. She admits the pelvic pain has been present for about 1 month. Pain is intermittent. She has history of chlamydia infection in 2012 and 2020. She reports history of left salpingectomy secondary to ectopic . She has been sexually active with 5 different men in the past 6 months. She tested positive for Gonorrhea on 09/17. She has been receiving Rocephin, Metronidazole and Doxycyline since admission. Vital signs stable. Leukocytosis improving with antibiotics but hemoglobin was decreasing. Pain continued to be intermittent. Decision was made to go to OR for diagnostic laparoscopy. Upon laparoscopic exam, grossly normal appearing liver, stomach, bowel and omentum. Surgically absent right fallopian tube. Right ovary could not be found. Left fallopian tube adhered to left ovary. Left ovary was enlarged with multiple cysts and positioned in the midline of the pelvis. Moderate amount of yellow purulent material in posterior cul-de-sac. After pelvis was irrigated, posterior cul-de-sac appeared raw and similar to a shallow ulcer. Posterior side of uterus also appeared raw and rough similar to shallow ulceration. No active bleeding. No hematoma. She was feeling well POD # 1, Hospital day # 3. Pain was controlled. Vital signs stable. Heart regular rate and rhythm. Lungs clear to auscultation bilaterally. Abdomen soft, mild distension, mild tenderness to palpation, normal bowel sounds. She denies fever/chills, chest pain and shortness of breath. No nausea or vomiting. Mild increase in leukocytosis following surgery, 14.2. Hgb 11.6. Will continue PO antibiotics x 12 days. Depo Provera for contraception prior to discharge. Patient was instructed to follow-up in the office in 2 weeks or sooner if needed. Patient was also instructed to tell her partner and he needs to be treated for STDs prior to resuming intercourse. Urine culture positive for Enterococcus faecalis. She will be discharged home with course of Ampicillin. Exam Data for Last 24 hours Vital signs and Labs for Last 24 Hours: Temp Pulse Resp BP Pulse Ox 98.0 F 56 L 18 96/51 L 96 09/20/22 04:36 09/20/22 04:36 09/20/22 07:43 09/20/22 04:36 09/20/22 00:30 Laboratory Results - last 24 hr 09/17/22 06:48: Urine Color Yellow, Urine Appearance Cloudy, Urine pH 8.0, Ur Specific [place] 1.015, Urine Protein Negative, Urine Glucose (UA) Negative, Urine Ketones Negative, Urine Blood Negative, Urine Nitrate Negative, Urine Bilirubin Negative, Urine Urobilinogen 0.2, Ur Leukocyte Esterase 1+ A, Urine RBC None, Urine WBC 3-5, Ur Squamous Epith Cells 5-10, Amorphous Sediment 2+, Urine Bacteria 4+ 09/19/22 15:30: POC Glucose 74 09/20/22 07:11: WBC 14.2 H D, RBC 3.89 L, Hgb 11.6 L, Hct 35.6 L, MCV 91.3, MCH 29.8, MCHC 32.6, RDW 12.8, Plt Count 318 D, MPV 8.6, Neut % (Auto) 83.4 H, Lymph % (Auto) 11.3, [place] % (Auto) 4.1, Eos % (Auto) 0.9, Baso % (Auto) 0.2, Neut # (Auto) 11.9 H, Lymph # (Auto) 1.6, [place] # (Auto) 0.6, Eos # (Auto) 0.1, Baso # (Auto) 0.0 I & O for Last 24 hours: Intake & Output 09/17/22 09/18/22 09/19/22 09/20/22 23:59 23:59 23:59 23:59 Intake Total 1500 / 1500 1000 / 1000 Output Total 850 / 850 401 / 401 0 / 0 0 / 0 Balance -850 / -850 1099 / 1099 1000 / 1000 0 / 0 Weight 120 lb Microbiology Re
--- NOTE | 2022-09-20 08:57 | P.PNANES_ITS ---
[facility] Anesthesia Record Part II Anesthesia Record Part II Discharge Time: 17:20 Destination: Surgical Day Care (OP Surgery) PACU nurse assessment reviewed?: Yes Patient Condition:: Good Anesthesia Complications:: None Swallowing reflex intact?: Yes Cyanosis?: No Blood Pressure: 108/61 Pulse Rate: 61 Temperature: 98.2 F Mental Status: Alert & Oriented Pain level:: 0 Nausea and/or vomitting:: None Intake, IV Amount: 0
[2022-09-20 08:58] VITALS: BP 108/61; PULSE 61; TEMP 36.8
== END 2022-09-20 09:43 | disposition home or self-care (01) | DRG 742 ==
LOC: ER 09:08 → OB 10:26
PROVIDERS: Emergency Medicine; Admitting Provider Obstetrics & Gynecology; Emergency Provider Student in an Organized Health Care Education/Training Program; PCP Nurse Practitioner Family; Visit Provider Obstetrics & Gynecology
PROC: 0UJ84ZZ Inspection of Fallopian Tube, Percutaneous Endoscopic Approach (ICD-10-PCS; CPT 49320; principal; 2022-09-19 14:00)
DX: N70.93 Salpingitis and oophoritis, unspecified (principal); A54.9 Gonococcal infection, unspecified; N39.0 Urinary tract infection, site not specified; R10.2 Pelvic and perineal pain; N83.202 Unspecified ovarian cyst, left side; E87.6 Hypokalemia; D64.9 Anemia, unspecified
CPT/HCPCS: 49320; 36415; 74177; 76830; 80053; 81001; 81025; 82962; 85007; 85025; 87070; 87077; 87086; 87088; 87186; 87205; 87491; 87591; 99285; C9803; J0456; J0696; J1050; J2405; J2543; J2710; Q9967; U0003; U0005

== ENCOUNTER 2023-03-13 11:08 | Emergency (ER) | payer MEDICAID, SELFPAY ==
[2023-03-13 11:09] VITALS: BP 95/73; PULSE 82; RESP 18; TEMP 36.9; O2SAT 100; BMI 22.1
--- NOTE | 2023-03-13 11:21 | EXP.UTC ---
Discharge Plan Disposition Patient Disposition: Home, Self-Care Condition: Good Prescriptions Prescriptions: New ibuprofen [ibuprofen] 600 mg tablet 600 mg PO Q6HP PRN (Reason: Mild Pain) Qty: 30 0RF No Action medroxyprogesterone [Depo-Provera] 150 mg/mL suspension 150 mg IM [id number] Referrals Follow up/Referrals: Kevin Bautista APRN [Primary Care Provider] - See instructions Eddie Taveras DO [Staff Physician] - See instructions Activity Restrictions/Add. Instructions Additional Instructions/Restrictions: Rest the extremity, apply ice for 15 minutes as tolerated three or four times per day, Wear the ai wrap for compression, Elevate the extremity as tolerated while you are resting. Take ibuprofen for pain. I sent in a prescription to your pharmacy. Follow up with Dr. Redmond (orthopedics). I put in a referral but you need to call his office and schedule an appointment. Follow up with your regular doctor. GO TO THE ER FOR ANY WORSENING SYMPTOMS Clinical Impressions Clinical Impression: Acute pain of right knee Stand Alone Forms Stand Alone Forms: Work/School Release Instructions Patient Instructions: DI for Knee Pain Discharge ED Provider: Kelechi Arroyo [facility] General Stated complaint: RT knee pain no accident Time Seen by Provider: 03/13/23 11:20 History of Present Illness Provider Complaint: She c/o worsening right knee pain for the past 2 days. She denies any known injury. She states that she believes she has been on it too much for her job. She denies any other joint pain or complaints Related Data Home Medications Medication Instructions Recorded Confirmed medroxyprogesterone 150 mg/mL 150 mg IM [id number] 10/03/22 10/03/22 intramuscular suspension (Depo-Provera) Previous Rx's Medication Instructions Recorded ibuprofen 600 mg tablet 600 mg PO Q6HP PRN Mild Pain #30 03/13/23 tabs Allergies Allergy/AdvReac Type Severity Reaction Status Date / Time sulfamethoxazole Allergy Verified 03/13/23 11:32 [From Bactrim] trimethoprim [From Bactrim] Allergy Verified 03/13/23 11:32 [facility] Disclaimer: The information contained in this section may have been updated after the patient was seen, as this information can be updated by other users. Medical History Anemia Gonorrhea History of ectopic Hypokalemia Kidney stones Left ovarian cyst Leukocytosis On Depo-Provera for contraception Right tubo-ovarian abscess UTI (urinary tract infection) Surgical History H/O unilateral salpingectomy History of dilation and curettage History of laparoscopic cholecystectomy Hx of laparoscopy Social History Smoking Status: Current every day smoker alcohol intake: current substance use type: marijuana current occupational status: employed Travel in the last 8 weeks: None ROS Obtained: Yes All systems reviewed & no additional complaints except as documented Constitutional Constitutional: Denies chills and Denies fever(s) Eyes Eyes: Denies eye discharge ENT Ears, Nose, Mouth, and Throat: Denies dizziness, Denies otalgia and Denies sore throat Cardiovascular Cardiovascular: Denies chest pain Respiratory Respiratory: Denies shortness of breath, Denies chest congestion, Denies cough, Denies stridor and Denies wheezing Gastrointestinal Gastrointestingal: Denies nausea or vomiting Musculoskeletal Musculoskeletal: Reports as per HPI Integumentary/Breasts Skin/Breast: Denies rash Neurologic Neurologic: Denies dizziness and Denies paresthesias Allergic/Immunologic Allergic/Immunologic: Denies wheezing Physical Exam General General appearance: alert and in no apparent distress Head Head exam: atraumatic, normocephalic and normal inspection Eye Eye exam: Present normal appearance
--- NOTE | 2023-03-13 11:27 | XR_ITS ---
FINAL REPORT CLINICAL HISTORY: pain on medial side of knee felt and heard pop FINDINGS: Three views of the right knee reveal no evidence of fracture or dislocation. The bony alignment is normal. The joint spaces are preserved. There is no evidence of joint effusion. No localized soft tissue abnormality is identified. IMPRESSION: No acute abnormality identified. Reviewed, Interpreted and Dictated by Yoseph Diggs III, MD Transcribed by Radha Ozuna Authenticated and [facility]
[2023-03-13 12:18] VITALS: BP 95/73; PULSE 82; RESP 18; TEMP 36.9; O2SAT 100
== END 2023-03-13 12:18 | disposition home or self-care (01) ==
PROVIDERS: Emergency Provider Nurse Practitioner Family; PCP Nurse Practitioner Family
DX: M25.561 Pain in right knee (principal); F17.200 Nicotine dependence, unspecified, uncomplicated
CPT/HCPCS: 73562; 99212; 99214; G0463

== ENCOUNTER → 2023-05-16 09:28 | Outpatient (CLI) | payer MEDICAID, SELFPAY ==
[2023-05-16 12:11] LABS: Basophils # 0.1 K/mm3 (0-0.2); Basophils % 0.7 % (0.1-2.0); Eosinophils # 0.3 K/mm3 (0.0-0.4); Eosinophils % 3.6 % (0.1-12.0); Hematocrit 46.5 % (37.0-47.0); Hemoglobin 14.7 g/dL (12.2-16.2); Lymphocytes # 2.5 K/mm3 (0.7-4.5); Lymphocytes % 34.1 % (10-50); Mean Corpuscular HGB Conc 31.7 g/dL (31.8-35.4); Mean Corpuscular Hemoglobin 28.8 pg (27.0-31.2); Mean Platelet Volume 9.2 fl (7.4-10.4); Monocytes # 0.3 K/mm3 (0.1-1.0); Monocytes % 4.7 % (1.7-9.3); Neutrophils # 4.1 K/mm3 (1.8-7.8); Platelet Count 212 K/mm3 (142-424); Red Blood Count 5.11 M/mm3 (4.20-5.40); Red Cell Distribution Width 13.1 % (11.5-17.5); White Blood Count 7.2 K/mm3 (4.8-10.8)
[2023-05-16 12:45] LABS: Alanine Aminotransferase 21 U/L (12-78); Albumin Level 4.1 g/dl (3.5-5.0); Albumin/Globulin Ratio 1.6 (1.1-1.8); Alkaline Phosphatase 116 U/L (38-126); Anion Gap 14.2 mEq/L (5-15); Aspartate Amino Transferase 25 U/L (14-36); Bilirubin,Total 0.2 mg/dl (0.2-1.3); Blood Urea Nitrogen 9 mg/dl (7-17); Calcium 8.5 mg/dl (8.4-10.2); Carbon Dioxide 26 mmol/L (22.0-30.0); Chloride 106 mmol/L (98-107); Chol/HDL Ratio 2.9 (1-3.5); Cholesterol 141 mg/dl (140-200); Estimated Glomerular Filt Rate 97 ml/min (>60); GFR (African American) 117 ML/MIN (>60); Globulin 2.5 g/dL (1.3-3.2); Glucose 71 mg/dl (74-100); HDL Cholesterol 49 mg/dl (40-60); Potassium 4.2 mmoL/L (3.5-5.1); Sodium 142 mmol/L (136-145); Total Protein,Serum 6.6 g/dl (6.3-8.2); Triglycerides 59 mg/dl (30-150); VLDL Cholesterol 12 mg/dL (0-40)
[2023-05-16 12:56] LABS: Direct LDL Cholesterol 85.17 mg/dL (100-129)
[2023-05-16 13:07] LABS: Free T4 (Free Thyroxine) 0.95 ng/dl (0.78-2.19)
[2023-05-16 13:09] LABS: 25-OH Vitamin D, Total 22.9 ng/mL (30-100)
[2023-05-16 13:13] LABS: Thyroid Stimulating Hormone 2.69 uIU/mL (0.465-4.68)
== END ==
PROVIDERS: PCP Nurse Practitioner Family; Visit Provider Nurse Practitioner Family
DX: D64.9 Anemia, unspecified (principal); E55.9 Vitamin D deficiency, unspecified; F32.A Depression, unspecified; Z79.899 Other long term (current) drug therapy
CPT/HCPCS: 80053; 80061; 82306; 84439; 84443; 85025

== ENCOUNTER 2023-12-26 21:10 | Emergency (ER) | payer MEDICAID, SELFPAY ==
[2023-12-26 21:18] VITALS: BP 108/86; PULSE 91; RESP 25; TEMP 36.8; O2SAT 98; BMI 22.3
[2023-12-26 21:27] LABS: Coronavirus 19, PCR Not Detected (NotDetected); Influenza A, PCR Not Detected (NotDetected)
[2023-12-26 21:37] LABS: Strep Scrn Group A (Rapid) Negative (Negative)
[2023-12-26 21:47] LABS: Influenza B, PCR Detected (NotDetected)
--- NOTE | 2023-12-26 21:52 | HMH.EDGENADL ---
Discharge Plan Disposition Patient Disposition: Home, Self-Care Prescriptions Prescriptions: New albuterol sulfate 90 mcg/actuation HFA aerosol inhaler 4 inh inhalation Q4H PRN (Reason: cough) Qty: 8.5 0RF Rx Instructions: 2-4 puffs as needed for cough benzonatate 100 mg capsule 100 mg PO TID PRN (Reason: cough) 5 Days Qty: 20 0RF No Action fluoxetine [Prozac] 40 mg capsule 40 mg PO DAILY Qty: 30 2RF ibuprofen [ibuprofen] 600 mg tablet 600 mg PO Q6HP PRN (Reason: Mild Pain) Qty: 30 0RF Referrals Follow up/Referrals: Kevin Bautista APRN [Primary Care Provider] - See instructions Activity Restrictions/Add. Instructions Additional Instructions/Restrictions: Addition to the Tessalon Perles and the albuterol inhaler I would recommend that you get [id number] chlorpheniramine 4 mg tablets to take every 4-6 hours as needed for cough and postnasal drip. Additionally I would recommend that you get from the pharmacy counter Sudafed 120 mg tablets extended release to take twice a day over the next week. Please return the emergency part with any worsening symptoms you may also take Tylenol and ibuprofen as needed for pain body aches fevers etc. Clinical Impressions Clinical Impression: Influenza B, Cough Discharge ED Provider: Lizzie Espinoza General Adult HPI General Chief complaint: Upper Respiratory Infection Stated complaint: cough, fever, sore throat, painful breathing Time Seen by Provider: 12/26/23 21:44 Mode of Arrival: Family Vehicle Source of Information: Patient Limitations: No Limitations Description of Symptoms (Recalled from ER Triage Doc. by RN): cough,sore throat, sinus congestion since saturday. nausea. afebrile. History of Present Illness HPI narrative: OfPatient is a 33-year-old female chronic smoking presents today with 5-day history of cough sore throat that has been nagging despite [id number] medications. Her primary concern is is this cough that we will go away. She has had positive contacts with COVID and flu where she is currently living and is exposed to secondhand smoke while she has stopped smoking over the last several days. Denies any other significant past medical history. Related Data Previous Rx's Medication Instructions Recorded ibuprofen 600 mg tablet 600 mg PO Q6HP PRN Mild Pain #30 03/13/23 tabs fluoxetine 40 mg capsule (Prozac) 40 mg PO DAILY #30 caps 05/16/23 albuterol sulfate 90 mcg/actuation 4 inh inhalation Q4H PRN cough 12/26/23 aerosol inhaler #8.5 grams benzonatate 100 mg capsule 100 mg PO TID PRN cough 5 days #20 12/26/23 caps Allergies Allergy/AdvReac Type Severity Reaction Status Date / Time sulfamethoxazole Allergy Verified 05/16/23 08:43 [From Bactrim] trimethoprim [From Bactrim] Allergy Verified 05/16/23 08:43 [facility] Disclaimer: The information contained in this section may have been updated after the patient was seen, as this information can be updated by other users. Medical History (Updated 12/26/23 @ 21:52 by Lizzie Espinoza MD) Acute pain of right knee Anemia Gonorrhea History of ectopic Hypokalemia Kidney stones Left ovarian cyst Leukocytosis On Depo-Provera for contraception Right tubo-ovarian abscess UTI (urinary tract infection) Surgical History H/O unilateral salpingectomy History of dilation and curettage History of laparoscopic cholecystectomy Hx of laparoscopy Social History Smoking Status: Current some day smoker alcohol intake: current substance use type: marijuana current occupational status: employed Travel in the last 8 weeks: None ROS Obtained: Yes All systems reviewed & no additional complaints except as documented Physical Exam General General appearance: alert Respiratory Respiratory exam: Present normal lung sounds bilaterally; Absent respiratory distress Cardiovascular Cardiovascular exam: Present regular rate and normal rhythm Neurological Exam Neurological exam: Present alert and oriented X3 Medical Decision Making Michael Inquiry Pt receiving controlled substance: No Vital Signs: 12/26/23 21:18 Temperature 98.2 F Temperature Source Oral Pulse Rate [Right Brachial] 91 H Respiratory Rate 25 H Blood Pressure [Right Arm] 108/86 L Blood Pressure Mean [Right Arm] 93 Blood Pressure Source [Right Arm] Automatic Cuff Blood Pressure Position [Right Arm] Sitting 02 Sat by Pulse Oximetry 98 Oxygen Delivery Method Room Air Lab Data Lab results reviewed: Yes I reviewed the patient's lab results. Lab Results 12/26/23 21:25: SARS-CoV-2 (PCR) Not detected, Influenza A Untype (PCR) Not detected, Influenza Type B (PCR) Detected A, Group A Strep Rapid Negative Orders (Tests/Meds): ED MEDICATIONS Generic Name Dose Route Start Last Admin Trade Name Bethany PRN Reason Stop Dose Admin Benzonatate 100 mg 12/26/23 22:00 Benzonatate 100mg Capsule PO 01/25/24 21:59 ONCE DOMINIK ORDERS Category Date Time Status Rapid PCR Covid and Flu A/B Stat Lab 12/26/23 21:25 Completed Strep Scrn Group A (Rapid) Stat Lab 12/26/23 21:25 Completed Strep Screen Confirmation Stat Micro 12/26/23 21:25 Received Medical Decision Narrative: Well-appearing previously healthy 33-year-old female presenting today with upper respiratory viral symptoms and a nagging cough which is causing her discomfort. She was given a dose of Tessalon Perles in the emergency department and sent home with Tessalon Perles as well as an albuterol inhaler. She has been advised to continue to stop smoking. She is outside any window for antiviral therapy. She is also been advised to take chlorpheniramine and Sudafed as needed for her symptoms. Medication for chest x-ray she has a normal respiratory exam. She is very well-appearing upon being discharged and is being she is treated supportively with return precautions Critical Care Critical Care Time Critical Care Time: No
[2023-12-26 21:56] VITALS: BP 105/79; PULSE 90; RESP 20; TEMP 37.5; O2SAT 98
== END 2023-12-26 21:59 | disposition home or self-care (01) ==
PROVIDERS: Emergency Provider Student in an Organized Health Care Education/Training Program; PCP Nurse Practitioner Family
DX: J10.1 Influenza due to other identified influenza virus with other respiratory manifestations (principal); R05.9 Cough, unspecified; R50.9 Fever, unspecified; R07.1 Chest pain on breathing; F17.200 Nicotine dependence, unspecified, uncomplicated; R07.0 Pain in throat
CPT/HCPCS: 87430; 87636; 99283